=== PATIENT | female | born 1955 | race Hispanic/Latino ===

== ENCOUNTER → 2017-09-25 | Outpatient (CLI) | payer OTHER ==
[~2017-09-25] MED LIST: CALCIUM; IBUPROFEN600 MG PO; LOSARTAN POTASS50 MG PO; OMEPRAZOLE40 MG PO; PROTONIX40 MG PO; REGLAN10 MG PO; TRIAMTERENE-HC1 EAC4 PO; VITAMIN D PO; Z.0.LEXAPRO10 MG PO; Z.0.NEXIUM40 MG PO; [UNRECOGNIZED DRUG - CODE] PO
--- NOTE | 2017-09-25 11:45 | Diagnostic Imaging Report ---
History:Blurred vision. Exophthalmus Comparison studies:None Technique: Axial images were obtained through the orbits. Coronal and sagittal images reconstructed from the axial data. Intravenous contrast: None. Findings: Globes: Mild bilateral exophthalmos with normal appearance of the globes. Anterior and posterior chambers. Well visualized lenses Optic nerves: Normal in size and symmetric. Extraocular muscles: Thickening of the bilateral inferior and medial rectus muscles with sparing of the myotendinous junction. Fatty infiltration of the right inferior rectus muscle Intraconal abnormalities.: Mild fatty stranding abutting the bilateral inferior rectus muscles Superior ophthalmic veins: Normal in size Lacrimal glands: Normal in size and homogeneous. Cavernous sinuses: No significant abnormality Pituitary stalk: At midline. Optic chiasm: Grossly unremarkable. Bones: No abnormalities. Sinuses: Focal mucosal thickening at the right maxillary sinus alveolar recess. The remaining paranasal sinuses are clear Soft tissues: No abnormalities. IMPRESSION: 1. 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 Signed by: DR José Zhu M.D. on 09/25/2017 11:41 AM
[2017-09-25 11:49] LABS: FREE THYROXINE INDEX 2.9698 (1.4-3.8)
[2017-09-25 12:31] LABS: THYROID STIMULATING HORMONE 0.002 uIU/mL (0.350-4.940)
== END ==
LOC: CT 10:09
PROVIDERS: ATTEND Ophthalmology
DX: H05.241 Constant exophthalmos, right eye (principal)
CPT/HCPCS: 36415; 70480; 84436; 84443; 84479

== ENCOUNTER 2020-04-12 11:16 | Emergency (ER) | payer MEDICARE, OTHER ==
[~2020-04-12] VITALS: Ht 160 cm; Wt 70.3 kg
[2020-04-12 12:05] LABS: CLARITY,URINE CLOUDY (CLEAR); COLOR,URINE RED (YELLOW); KETONES,URINE NEGATIVE (NEGATIVE); LEUKOCYTE ESTERASE ,URINE SMALL (NEGATIVE); NITRITE,URINE NEGATIVE (NEGATIVE); PROTEIN,URINE DIPSTICK 2+ (NEGATIVE); URINE UROBILINOGEN 1 mg/dL (0.2 - 1)
[2020-04-12 12:19] LABS: BACTERIA,URINE FEW /HPF; RBC,URINE >50 /HPF (0-5)
[2020-04-12] MEDS ORDERED: BACTRIM DS TAB1 EACH PO (13:46)
[2020-04-12 15:23] VITALS: BP 144/98
== END 2020-04-12 15:25 | disposition home or self-care (01) ==
LOC: ER 11:43
DX: N39.0 Urinary tract infection, site not specified (principal); R31.9 Hematuria, unspecified; R10.30 Lower abdominal pain, unspecified; M19.90 Unspecified osteoarthritis, unspecified site; Z85.3 Personal history of malignant neoplasm of breast
CPT/HCPCS: 81001; 87086; 87186; 99282

== ENCOUNTER 2021-04-01 13:23 | Emergency (ER) | payer MEDICARE ==
[~2021-04-01] VITALS: Ht 160 cm; Wt 70.3 kg
[~2021-04-01 13:23] MED LIST changes: +BACTRIM DS TAB1 EACH PO
== END 2021-04-01 13:54 | disposition home or self-care (01) ==
LOC: ER 13:52
DX: Z45.2 Encounter for adjustment and management of vascular access device (principal); Z85.3 Personal history of malignant neoplasm of breast
CPT/HCPCS: 99282